=== PATIENT | female | born 1940 | race Caucasian/White ===

== ENCOUNTER → 2016-12-23 | Outpatient (CLI) | payer MEDICARE, OTHER ==
[~2016-12-23] VITALS: Ht 1 cm; Wt 0.5 kg
[~2016-12-23] MED LIST: BUPIVACAINE 0.75% INJ 10ML MPV SDV IJ ONE; BUPIVACAINE HCL 0.25% P/F 10 ML VIAL ONE; TRIAMCINOLONE 40MG/ML 1ML VIAL IX ONE; TRIAMCINOLONE 40MG/ML 1ML VIAL ONE; predniSONE 20 MG TAB ONE; predniSONE 20 MG TAB PO ONE
[2016-12-23 13:00] VITALS: BP 148/63
[2016-12-23 14:45] VITALS: BP 156/62
[2016-12-23 17:10] LABS: Basophils # (auto) 0 uL; Basophils % (auto) 0.3 % (0.0-2.0); Eosinophils # (auto) 0 uL; Eosinophils % (auto) 0.1 % (0.0-7.0); Hematocrit 38.5 % (36.0-46.0); Hemoglobin 12.9 g/dL (12.2-16.2); Lymphocytes # (auto) 1.2 uL; Lymphocytes % (auto) 12.1 % (10.0-50.0); Mean Corpuscular Hemoglobin 29.2 pg (28.0-32.0); Mean Corpuscular Hgb Conc. 33.4 g/dL (32.0-36.0); Mean Corpuscular Volume 87.5 fL (80.0-100.0); Monocytes # (auto) 0.7 uL; Monocytes % (auto) 7.9 % (0.0-12.0); Neutrophils # (auto) 7.6 uL; Neutrophils % (auto) 79.6 % (37.0-80.0); Platelet Count (auto) 307 10^3/uL (140-450); Red Cell Distribution Width 13.6 % (11.8-14.3); White Blood Cell 9.5 10^3/uL (4.4-10.8)
[2016-12-23 17:36] LABS: BUN/Creatinine Ratio 16.1; Magnesium 2.3 mg/dL (1.6-2.6); Potassium 3.7 mmol/L (3.5-5.1)
== END | disposition home or self-care (01) ==
LOC: CHF HDHVI 13:05
PROVIDERS: ATTEND Internal Medicine Cardiovascular Disease
DX: I10 Essential (primary) hypertension (principal); D64.9 Anemia, unspecified; R70.0 Elevated erythrocyte sedimentation rate; E55.9 Vitamin D deficiency, unspecified; S90.31XA Contusion of right foot, initial encounter; X58.XXXA Exposure to other specified factors, initial encounter; Y93.9 Activity, unspecified; Y92.89 Other specified places as the place of occurrence of the external cause; Y99.8 Other external cause status
CPT/HCPCS: 36415; 80048; 82306; 83735; 85025; 85652; G0463; J3301; J3490; J7512

== ENCOUNTER → 2017-03-18 | Outpatient (CLI) | payer MEDICARE, OTHER ==
[2017-03-18 11:40] VITALS: BP 156/68
[2017-03-18 12:20] VITALS: BP 159/66
[2017-03-20 06:06] LABS: Rheumatoid Arthritis Factor <10.0 IU/mL (0.0-13.9)
== END | disposition home or self-care (01) ==
LOC: CHF HDHVI 11:36
PROVIDERS: ATTEND Internal Medicine Cardiovascular Disease
DX: I10 Essential (primary) hypertension (principal); M06.9 Rheumatoid arthritis, unspecified; E78.00 Pure hypercholesterolemia, unspecified; D64.9 Anemia, unspecified; M45.0 Ankylosing spondylitis of multiple sites in spine
CPT/HCPCS: 36415; 85652; 86141; 86200; 86431; 86812; G0463

== ENCOUNTER → 2017-06-09 | Outpatient (CLI) | payer MEDICARE, OTHER | END | disposition home or self-care (01) | LOC: Rad HDHVI 12:41 | PROVIDERS: ATTEND Internal Medicine Cardiovascular Disease | DX: I10 Essential (primary) hypertension (principal) | CPT/HCPCS: 93880 ==

== ENCOUNTER → 2017-06-24 | Outpatient (CLI) | payer MEDICARE ==
[~2017-06-24] MED LIST changes: +ADENOSINE 61 MG in GIVE UN-DILUTED 0 ML IV ONE; +ADENOSINE 90 MG/30 ML INJ IV ONE; -BUPIVACAINE 0.75% INJ 10ML MPV SDV IJ ONE; -BUPIVACAINE HCL 0.25% P/F 10 ML VIAL ONE; -TRIAMCINOLONE 40MG/ML 1ML VIAL IX ONE; -TRIAMCINOLONE 40MG/ML 1ML VIAL ONE; -predniSONE 20 MG TAB ONE; -predniSONE 20 MG TAB PO ONE
[2017-06-24 11:55] LABS: Basophils # (auto) 0.1 uL; Eosinophils # (auto) 0.1 uL; Monocytes # (auto) 0.8 uL; Nucleated Red Blood Cells % 0.1 %
[2017-06-24 11:56] LABS: Urine Blood Negative /uL (Negative); Urine Specific Gravity 1.023 (1.001-1.035)
[2017-06-24 11:57] LABS: Basophils % (auto) 0.5 % (0.0-2.0); Eosinophils % (auto) 1.4 % (0.0-7.0); Hematocrit 36.7 % (36.0-46.0); Hemoglobin 12.3 g/dL (12.2-16.2); Lymphocytes # (auto) 3.7 uL; Lymphocytes % (auto) 35.4 % (10.0-50.0); Mean Corpuscular Hemoglobin 29.7 pg (28.0-32.0); Mean Corpuscular Hgb Conc. 33.5 g/dL (32.0-36.0); Mean Corpuscular Volume 88.8 fL (80.0-100.0); Monocytes % (auto) 7.4 % (0.0-12.0); Neutrophils # (auto) 5.8 uL; Neutrophils % (auto) 55.3 % (37.0-80.0); Platelet Count (auto) 592 10^3/uL (140-450); Red Blood Cells 4.14 10^6/uL (4.0-5.20); Red Cell Distribution Width 14.5 % (11.8-14.3); White Blood Cell 10.6 10^3/uL (4.4-10.8)
[2017-06-24 12:16] LABS: Free T4 (Free Thyroxine) 1.16 ng/dL (0.89-1.76)
[2017-06-24 12:17] LABS: Hepatitis B Surface Antibody Negative
[2017-06-24 12:18] LABS: Albumin 3.5 g/dL (3.4-5.0); BUN/Creatinine Ratio 36.6; Bilirubin, Total 0.3 mg/dL (0.2-1.0); Calcium 9.1 mg/dL (8.5-10.1); Potassium 3.6 mmol/L (3.5-5.1); Total Protein 7.6 g/dL (6.4-8.2)
[2017-06-24 12:28] LABS: Hepatitis B Surface Antigen Negative (Negative)
[2017-06-24 12:56] LABS: Hepatitis C Antibody Negative (Negative)
== END | disposition home or self-care (01) ==
LOC: Rad HDHVI 07:58
PROVIDERS: ATTEND Internal Medicine Cardiovascular Disease
DX: Z11.9 Encounter for screening for infectious and parasitic diseases, unspecified (principal); I34.0 Nonrheumatic mitral (valve) insufficiency; I10 Essential (primary) hypertension; M10.9 Gout, unspecified; E78.00 Pure hypercholesterolemia, unspecified; D64.9 Anemia, unspecified; E11.9 Type 2 diabetes mellitus without complications; E03.9 Hypothyroidism, unspecified; E55.9 Vitamin D deficiency, unspecified; D51.9 Vitamin B12 deficiency anemia, unspecified; N39.0 Urinary tract infection, site not specified; Z20.5 Contact with and (suspected) exposure to viral hepatitis
CPT/HCPCS: 36415; 78452; 80053; 80061; 81003; 82306; 82607; 83036; 84439; 84443; 84550; 85025; 86706; 86803; 87340; 93005; 93306; 96374; 96375; A9500; J0153

== ENCOUNTER → 2018-02-02 | Outpatient (CLI) | payer MEDICARE, BC ==
[2018-02-02 12:18] LABS: Basophils # (auto) 0.1 uL; Basophils % (auto) 0.8 % (0.0-2.0); Eosinophils # (auto) 0.1 uL; Eosinophils % (auto) 0.7 % (0.0-7.0); Hematocrit 43.3 % (36.0-46.0); Hemoglobin 14.4 g/dL (12.2-16.2); Lymphocytes # (auto) 1.7 uL; Lymphocytes % (auto) 21.2 % (10.0-50.0); Mean Corpuscular Hemoglobin 30.7 pg (28.0-32.0); Mean Corpuscular Hgb Conc. 33.3 g/dL (32.0-36.0); Mean Corpuscular Volume 92.4 fL (80.0-100.0); Monocytes # (auto) 0.4 uL; Monocytes % (auto) 4.9 % (0.0-12.0); Neutrophils # (auto) 5.9 uL; Neutrophils % (auto) 72.4 % (37.0-80.0); Nucleated Red Blood Cells % 0.3 %; Platelet Count (auto) 351 10^3/uL (140-450); Red Blood Cells 4.69 10^6/uL (4.0-5.20); Red Cell Distribution Width 14.4 % (11.8-14.3); White Blood Cell 8.1 10^3/uL (4.4-10.8)
[2018-02-02 12:31] LABS: BUN/Creatinine Ratio 19.7; Calcium 9.5 mg/dL (8.5-10.1)
== END | disposition home or self-care (01) ==
LOC: Rad HDHVI 10:03
PROVIDERS: ATTEND Internal Medicine Cardiovascular Disease
DX: M19.042 Primary osteoarthritis, left hand (principal); M19.041 Primary osteoarthritis, right hand; D64.9 Anemia, unspecified; I10 Essential (primary) hypertension
CPT/HCPCS: 36415; 73130; 80048; 85025

== ENCOUNTER → 2018-07-12 | Outpatient (CLI) | payer MEDICARE, BC | END | disposition home or self-care (01) | LOC: CHF HDHVI 12:28 | PROVIDERS: ATTEND Internal Medicine Cardiovascular Disease | DX: I34.0 Nonrheumatic mitral (valve) insufficiency (principal); I11.9 Hypertensive heart disease without heart failure; R07.89 Other chest pain | CPT/HCPCS: 93306; 93880 ==

== ENCOUNTER → 2018-09-29 | Outpatient (CLI) | payer MEDICARE, BC ==
[~2018-09-29] VITALS: Ht 160 cm; Wt 78.5 kg
[~2018-09-29] MED LIST changes: -ADENOSINE 61 MG in GIVE UN-DILUTED 0 ML IV ONE; +ADENOSINE 66 MG in GIVE UN-DILUTED 0 ML IV ONE
== END | disposition home or self-care (01) ==
LOC: Rad HDHVI 10:38
PROVIDERS: ATTEND Internal Medicine Cardiovascular Disease
DX: R10.9 Unspecified abdominal pain (principal); R11.10 Vomiting, unspecified; R19.7 Diarrhea, unspecified; R06.02 Shortness of breath; I10 Essential (primary) hypertension; M77.8 Other enthesopathies, not elsewhere classified
CPT/HCPCS: 78452; 93005; 96374; 96375; A9500; J0153

== ENCOUNTER → 2019-06-07 | Outpatient (CLI) | payer MEDICARE, BC ==
[~2019-06-07] MED LIST changes: -ADENOSINE 66 MG in GIVE UN-DILUTED 0 ML IV ONE; -ADENOSINE 90 MG/30 ML INJ IV ONE; +CYANOCOBALAMIN (B-12) 1000 MCG/1 ML VIAL ONE; +CYANOCOBALAMIN (B-12) 1000 MCG/1 ML VIAL SUBCUT ONE; +SODIUM CHLORIDE 0.9% 250 ML IV ONE
[2019-06-07 14:35] VITALS: BP 146/64
[2019-06-07 15:45] VITALS: BP 159/78
[2019-06-07 16:01] LABS: Basophils # (auto) 0 uL; Basophils % (auto) 0.7 % (0.0-2.0); Eosinophils # (auto) 0.1 uL; Eosinophils % (auto) 1.1 % (0.0-7.0); Hematocrit 41.8 % (36.0-46.0); Hemoglobin 13.8 g/dL (12.2-16.2); Lymphocytes # (auto) 1.9 uL; Lymphocytes % (auto) 27.1 % (10.0-50.0); Mean Corpuscular Hemoglobin 29.9 pg (28.0-32.0); Mean Corpuscular Volume 90.7 fL (80.0-100.0); Monocytes # (auto) 0.5 uL; Monocytes % (auto) 7.6 % (0.0-12.0); Neutrophils # (auto) 4.5 uL; Neutrophils % (auto) 63.5 % (37.0-80.0); Platelet Count (auto) 305 10^3/uL (140-450); Red Blood Cells 4.61 10^6/uL (4.0-5.20); Red Cell Distribution Width 14.6 % (11.8-14.3); White Blood Cell 7.2 10^3/uL (4.4-10.8)
[2019-06-07 16:15] LABS: Albumin 3.9 g/dL (3.4-5.0); BUN/Creatinine Ratio 27.7; Calcium 8.9 mg/dL (8.5-10.1)
[2019-06-07 16:18] LABS: Urine Blood Negative /uL (Negative); Urine Specific Gravity 1.024 (1.001-1.035)
[2019-06-07 16:23] LABS: Bilirubin, Total 0.5 mg/dL (0.2-1.0); Total Protein 7.4 g/dL (6.4-8.2)
== END | disposition home or self-care (01) ==
LOC: CHF HDHVI 14:42
PROVIDERS: ATTEND Internal Medicine Cardiovascular Disease
DX: E86.0 Dehydration (principal); R53.83 Other fatigue; I25.10 Atherosclerotic heart disease of native coronary artery without angina pectoris; E03.9 Hypothyroidism, unspecified; K90.9 Intestinal malabsorption, unspecified; N39.0 Urinary tract infection, site not specified; D51.9 Vitamin B12 deficiency anemia, unspecified; Z79.899 Other long term (current) drug therapy
CPT/HCPCS: 36415; 80053; 81003; 82306; 82607; 83036; 83735; 84443; 85025; 87086; 96360; 96372; G0463; J3420; J7050

== ENCOUNTER → 2019-06-09 | Outpatient (CLI) | payer MEDICARE, BC ==
[~2019-06-09] MED LIST changes: -CYANOCOBALAMIN (B-12) 1000 MCG/1 ML VIAL ONE; -CYANOCOBALAMIN (B-12) 1000 MCG/1 ML VIAL SUBCUT ONE; +KETOROLAC TROMETH 15 mg/ml 1ML VL IV ONE; +KETOROLAC TROMETH 60MG/2ML VIAL IM ONE; +KETOROLAC TROMETH 60MG/2ML VIAL ONE; +SODIUM CHLORIDE 0.9% 1,000 ML IV ONE; -SODIUM CHLORIDE 0.9% 250 ML IV ONE; +SODIUM CHLORIDE 0.9% 500 ML IV ONE
[2019-06-09 09:05] VITALS: BP 149/59
--- NOTE | 2019-06-09 09:05 | NUR ---
[facility] PT ARRIVED AT [facility] FOR TX AND EVAL PER MD STOKES BIWEEKLY . PT A/O X 4 0 DISTRESS. PT VERBALIZED GENERALIZED PAIN DUE TO HISTORY OF ARTHRITIS
--- NOTE | 2019-06-09 09:30 | NUR ---
IV insertion IV access obtained, via clean sterile technique by inserting 22 gauge catheter at after attempt(s). IV secured properly. No trauma to site. Patient tolerated procedure well.
--- NOTE | 2019-06-09 09:56 | NUR ---
TORADOL GIVEN IV PER MD ORDER
[2019-06-09 12:04] VITALS: BP 156/71
--- NOTE | 2019-06-09 12:04 | NUR ---
IV removal IV DC'd with sterile technique, catheter fully intact. Pressure dressing applied to site. Patient tolerated procedure well. Discharged with aftercare instructions per MD. NOTE:
--- NOTE | 2019-06-09 12:04 | NUR ---
Discharge Instructions See e-MAR for any mediations given with this visit. Patient education given on disease process. Patient verbalized understanding. Previous labs reviewed. Patient discharged in stable condition with after care instructions and follow up appointmenMEDICATIONS NS 500 ML IV [id number] Addendum: 06/09/19 at 1640 by RAJINDER RICARDO. MELVA SPRINGER TORADOL IM GIVEN BY NILDA BARRON TORADOL IV GIVEN BY RAJINDER FRYE Addendum: 06/09/19 at 1740 by RAJINDER RICARDO. MELVA SPRINGER PT TO FOLLOW UP IN CLINIC ON WEDNESDAY. PT IS STRATING ELAVIL AND STOPPING [id number] ALSO STARTING TRAZADONE 1 1/2 TABLETS PER MD STOKES, PT VERBALIZED UNDERSTANDING WILL CONTINUE TO MONITOR PTS EMOTIONAL PROGRESS AND BLOOD PRESSURE
--- NOTE | 2019-06-09 12:04 | NUR ---
TORADOL GIVEN IM PER MD ORDER
== END | disposition home or self-care (01) ==
LOC: CHF HDHVI 09:01
PROVIDERS: ATTEND Internal Medicine Cardiovascular Disease
DX: E86.0 Dehydration (principal); I25.10 Atherosclerotic heart disease of native coronary artery without angina pectoris; E03.9 Hypothyroidism, unspecified; M06.9 Rheumatoid arthritis, unspecified; I10 Essential (primary) hypertension; Z79.899 Other long term (current) drug therapy
CPT/HCPCS: 96361; 96372; 96374; G0463; J1885; 96360; 96375

== ENCOUNTER → 2019-06-12 | Outpatient (CLI) | payer MEDICARE, BC ==
[~2019-06-12] VITALS: Ht 2.5 cm; Wt 0.5 kg
[~2019-06-12] MED LIST changes: -KETOROLAC TROMETH 15 mg/ml 1ML VL IV ONE; +MVI IN SODIUM CHLORIDE 0.9% IVB ONE; +MVI in SODIUM CHLORIDE 0.9% 1,010 ML ONE; -SODIUM CHLORIDE 0.9% 1,000 ML IV ONE; -SODIUM CHLORIDE 0.9% 500 ML IV ONE
[2019-06-12 09:10] VITALS: BP 157/64
[2019-06-12 12:18] VITALS: BP 163/76
== END | disposition home or self-care (01) ==
LOC: CHF HDHVI 09:28
PROVIDERS: ATTEND Internal Medicine Cardiovascular Disease
DX: E86.0 Dehydration (principal); R53.83 Other fatigue; M06.9 Rheumatoid arthritis, unspecified; I25.10 Atherosclerotic heart disease of native coronary artery without angina pectoris; E03.9 Hypothyroidism, unspecified; Z79.899 Other long term (current) drug therapy
CPT/HCPCS: 96365; 96366; 96372; G0463; J1885; J3411; J3475

== ENCOUNTER → 2019-06-16 | Outpatient (CLI) | payer MEDICARE, BC ==
[~2019-06-16] MED LIST changes: -KETOROLAC TROMETH 60MG/2ML VIAL IM ONE; -KETOROLAC TROMETH 60MG/2ML VIAL ONE; -MVI IN SODIUM CHLORIDE 0.9% IVB ONE; +MVI in SODIUM CHLORIDE 0.9% 1,000 ML IVB ONE
[2019-06-16 09:43] VITALS: BP 132/60
--- NOTE | 2019-06-16 09:43 | NUR ---
CHF PT ARRIVED TO CLINIC FOR WEEKLY F/U AND ASSESSMENT OF HYDRATION STATUS. PT A/O X 4 0 DISTRESS
--- NOTE | 2019-06-16 09:55 | NUR ---
IV insertion IV access obtained, via clean sterile technique by inserting 22 gauge catheter at LAC after 1 attempt(s). IV secured properly. No trauma to site. Patient tolerated procedure well.
--- NOTE | 2019-06-16 12:20 | NUR ---
IV removal IV DC'd with sterile technique, catheter fully intact. Pressure dressing applied to site. Patient tolerated procedure well. Discharged with aftercare instructions per MD. NOTE:
--- NOTE | 2019-06-16 12:24 | NUR ---
Discharge Instructions See e-MAR for any mediations given with this visit. Patient education given on disease process. Patient verbalized understanding. Patient discharged in stable condition with after care instructions and follow up appointment. F/U IN CLINIC ON WEDNESDAY AND MD STOKES ON WEDNESDAY NEXT WEEK MEDICATIONS MVI [id number]
[2019-06-16 16:01] VITALS: BP 151/69
== END | disposition home or self-care (01) ==
LOC: CHF HDHVI 09:39
PROVIDERS: ATTEND Internal Medicine Cardiovascular Disease
DX: E86.0 Dehydration (principal); M06.9 Rheumatoid arthritis, unspecified; E03.9 Hypothyroidism, unspecified; R03.0 Elevated blood-pressure reading, without diagnosis of hypertension; Z79.899 Other long term (current) drug therapy
CPT/HCPCS: 96365; 96366; G0463; J3411; J3475

== ENCOUNTER → 2019-06-19 | Outpatient (CLI) | payer BC, MEDICARE ==
[~2019-06-19] MED LIST changes: -MVI in SODIUM CHLORIDE 0.9% 1,000 ML IVB ONE; +MVI in SODIUM CHLORIDE 0.9% 500 ML IVB ONE
[2019-06-19 10:23] VITALS: BP 145/67
--- NOTE | 2019-06-19 10:23 | NUR ---
CHF PT ARRIVED TO THE [facility]F CLINIC FOR MD ORDERS IV MVI BAG. A/O X4 VSS
--- NOTE | 2019-06-19 10:48 | NUR ---
IV insertion IV access obtained, via clean sterile technique by inserting 22 gauge catheter at 1 after RFA attempt(s). IV secured properly. No trauma to site. Patient tolerated procedure well. NOTE INSERTED BY NANCY FRYE
--- NOTE | 2019-06-19 10:52 | NUR ---
MVI BAG STARTED , VSS
[2019-06-19 11:15] VITALS: BP 142/67
--- NOTE | 2019-06-19 11:59 | NUR ---
PT TOLERATING MVI INFUSION, IV SITE BENIGN, VSS
[2019-06-19 12:04] LABS: Basophils # (auto) 0 10 ^3/uL (0-0.2); Basophils % (auto) 0.8 % (0.0-2.0); Eosinophils # (auto) 0 10 ^3/uL (0-0.8); Eosinophils % (auto) 0.8 % (0.0-7.0); Hematocrit 39.2 % (36.0-46.0); Hemoglobin 13.6 g/dL (12.2-16.2); Lymphocytes # (auto) 0.9 10 ^3/uL (0.4-5.4); Lymphocytes % (auto) 15.5 % (10.0-50.0); Mean Corpuscular Hemoglobin 31.2 pg (28.0-32.0); Mean Corpuscular Hgb Conc. 34.7 g/dL (32.0-36.0); Mean Corpuscular Volume 90.1 fL (80.0-100.0); Monocytes # (auto) 0.3 10 ^3/uL (0-1.3); Monocytes % (auto) 4.3 % (0.0-12.0); Neutrophils # (auto) 4.6 10 ^3/uL (1.6-8.6); Neutrophils % (auto) 78.6 % (37.0-80.0); Nucleated Red Blood Cells % 0.1 %; Platelet Count (auto) 280 10^3/uL (140-450); Red Blood Cells 4.34 10^6/uL (4.0-5.20); Red Cell Distribution Width 14.3 % (11.8-14.3); White Blood Cell 5.9 10^3/uL (4.4-10.8)
[2019-06-19 12:15] VITALS: BP 163/67
[2019-06-19 12:16] LABS: Potassium 3.9 mmol/L (3.5-5.1)
[2019-06-19 12:20] LABS: BUN/Creatinine Ratio 21.7; Calcium 9.3 mg/dL (8.5-10.1); Magnesium 2.3 mg/dL (1.6-2.6)
--- NOTE | 2019-06-19 13:17 | NUR ---
IV removal IV DC'd with sterile technique, catheter fully intact. Pressure dressing applied to site. Patient tolerated procedure well. Discharged with aftercare instructions per MD. NOTE: REMOVED BY NANCY FRYE
[2019-06-19 13:24] VITALS: BP 154/70
--- NOTE | 2019-06-19 13:24 | NUR ---
Discharge Instructions See e-MAR for any mediations given with this visit. Patient education given on disease process. Patient verbalized understanding. Previous labs reviewed. Patient discharged in stable condition with after care instructions and follow up appointment. ON WEDNESDAY NOTE MVI BAG [id number]
== END | disposition home or self-care (01) ==
LOC: CHF HDHVI 10:15
PROVIDERS: ATTEND Internal Medicine Cardiovascular Disease
DX: E86.0 Dehydration (principal); R53.83 Other fatigue; I25.10 Atherosclerotic heart disease of native coronary artery without angina pectoris; D64.9 Anemia, unspecified; E03.9 Hypothyroidism, unspecified; Z79.899 Other long term (current) drug therapy
CPT/HCPCS: 36415; 80048; 83735; 85025; 96365; 96366; G0463; J3411; J3475

== ENCOUNTER → 2019-06-23 | Outpatient (CLI) | payer MEDICARE ==
[2019-06-23 09:30] VITALS: BP 126/68
[2019-06-23 12:15] VITALS: BP 100/64
[2019-06-23 13:08] VITALS: BP 126/68
== END | disposition home or self-care (01) ==
LOC: CHF HDHVI 09:14
PROVIDERS: ATTEND Internal Medicine Cardiovascular Disease
DX: E86.0 Dehydration (principal); E03.9 Hypothyroidism, unspecified; I25.10 Atherosclerotic heart disease of native coronary artery without angina pectoris; R03.0 Elevated blood-pressure reading, without diagnosis of hypertension; M06.9 Rheumatoid arthritis, unspecified; Z79.899 Other long term (current) drug therapy
CPT/HCPCS: 96365; 96366; G0463; J3411; J3475

== ENCOUNTER → 2019-06-26 | Outpatient (CLI) | payer MEDICARE ==
[~2019-06-26] VITALS: Ht 30.5 cm; Wt 0.5 kg
[~2019-06-26] MED LIST changes: +KETOROLAC TROMETH 60MG/2ML VIAL IM ONE; +KETOROLAC TROMETH 60MG/2ML VIAL ONE; -MVI in SODIUM CHLORIDE 0.9% 1,010 ML ONE; -MVI in SODIUM CHLORIDE 0.9% 500 ML IVB ONE
[2019-06-26 09:01] VITALS: BP 159/84
[2019-06-26 09:51] VITALS: BP 146/76
== END | disposition home or self-care (01) ==
LOC: CHF HDHVI 09:10
PROVIDERS: ATTEND Internal Medicine Cardiovascular Disease
DX: R52 Pain, unspecified (principal); I25.10 Atherosclerotic heart disease of native coronary artery without angina pectoris; E03.9 Hypothyroidism, unspecified; M06.9 Rheumatoid arthritis, unspecified; Z79.899 Other long term (current) drug therapy
CPT/HCPCS: 96372; G0463; J1885

== ENCOUNTER → 2019-07-05 | Outpatient (CLI) | payer MEDICARE ==
[~2019-07-05] VITALS: Ht 30.5 cm; Wt 0.5 kg
[~2019-07-05] MED LIST changes: +MULTIPLE VIT 10 ML IV ONE; +MVI in SODIUM CHLORIDE 0.9% 500 ML IVB ONE
[2019-07-05 09:08] VITALS: BP 135/68
--- NOTE | 2019-07-05 09:08 | NUR ---
CHF PT ARRIVED TO CLINIC FOR WEEKLY F/U WITH ORDERS FOR MVI INFUSION. A/O X4 VSS
--- NOTE | 2019-07-05 09:19 | NUR ---
IV insertion IV access obtained, via clean sterile technique by inserting 22 gauge catheter at RFA after 1 attempt(s). IV secured properly. No trauma to site. Patient tolerated procedure well. NOTE INSERTED BY NANCY FRYE
--- NOTE | 2019-07-05 09:39 | NUR ---
MVI STARTED AT 150ML/HR. WILL CONTINUE TO MONITOR
[2019-07-05 10:00] VITALS: BP 146/70
[2019-07-05 11:00] VITALS: BP 152/73
[2019-07-05 11:30] VITALS: BP 138/63
[2019-07-05 11:51] LABS: Basophils # (auto) 0 10 ^3/uL (0-0.2); Basophils % (auto) 0.9 % (0.0-2.0); Eosinophils # (auto) 0.2 10 ^3/uL (0-0.8); Eosinophils % (auto) 4.2 % (0.0-7.0); Hematocrit 39.8 % (36.0-46.0); Hemoglobin 13.4 g/dL (12.2-16.2); Lymphocytes # (auto) 1.9 10 ^3/uL (0.4-5.4); Lymphocytes % (auto) 33.5 % (10.0-50.0); Mean Corpuscular Hemoglobin 30.7 pg (28.0-32.0); Mean Corpuscular Hgb Conc. 33.8 g/dL (32.0-36.0); Mean Corpuscular Volume 90.8 fL (80.0-100.0); Monocytes # (auto) 0.5 10 ^3/uL (0-1.3); Monocytes % (auto) 8.1 % (0.0-12.0); Neutrophils # (auto) 3.1 10 ^3/uL (1.6-8.6); Neutrophils % (auto) 53.3 % (37.0-80.0); Nucleated Red Blood Cells % 0.2 %; Platelet Count (auto) 346 10^3/uL (140-450); Red Blood Cells 4.38 10^6/uL (4.0-5.20); White Blood Cell 5.7 10^3/uL (4.4-10.8)
--- NOTE | 2019-07-05 11:54 | NUR ---
PT TOLERATING INFUSION. IV SITE BENIGN. VSS. WILL CONTINUE TO MONITOR
[2019-07-05 12:00] VITALS: BP 155/62
[2019-07-05 12:10] LABS: Calcium 9.1 mg/dL (8.5-10.1); Magnesium 2.4 mg/dL (1.6-2.6); Potassium 3.8 mmol/L (3.5-5.1)
[2019-07-05 12:12] LABS: BUN/Creatinine Ratio 23.4
[2019-07-05 12:42] VITALS: BP 158/75
--- NOTE | 2019-07-05 12:42 | NUR ---
Discharge Instructions See e-MAR for any mediations given with this visit. Patient education given on disease process. Patient verbalized understanding. Previous labs reviewed. Patient discharged in stable condition with after care instructions and follow up appointment. WILL CALL NEXT WEEK FOR F/U APPOINTMENT NOTE MVI IV [id number] TORADOL YANET BARRYE GIVEN BY NANCY FRYE
== END | disposition home or self-care (01) ==
LOC: CHF HDHVI 09:06
PROVIDERS: ATTEND Internal Medicine Cardiovascular Disease
DX: E86.0 Dehydration (principal); D64.9 Anemia, unspecified; R53.83 Other fatigue; I25.10 Atherosclerotic heart disease of native coronary artery without angina pectoris; E03.9 Hypothyroidism, unspecified; I10 Essential (primary) hypertension; M06.9 Rheumatoid arthritis, unspecified; Z79.899 Other long term (current) drug therapy
CPT/HCPCS: 36415; 80048; 83735; 85025; 96365; 96366; 96372; G0463; J1885; J7040

== ENCOUNTER → 2019-07-25 | Outpatient (CLI) | payer MEDICARE, BC ==
[~2019-07-25] VITALS: Ht 157.5 cm; Wt 71.2 kg
[~2019-07-25] MED LIST changes: -KETOROLAC TROMETH 60MG/2ML VIAL ONE
[2019-07-25 08:45] VITALS: BP 142/68
--- NOTE | 2019-07-25 08:45 | NUR ---
CHF PT ARRIVED TO THE CHF CLINIC FOR IV HYDRATION MVI PER MD ORDERS. A/OX4.
--- NOTE | 2019-07-25 08:59 | NUR ---
IV insertion IV access obtained, via clean sterile technique by inserting 22 gauge catheter at LAC after 1 attempt(s). IV secured properly. No trauma to site. Patient tolerated procedure well. NOTE INSERTED BY NANCY FRYE
--- NOTE | 2019-07-25 09:09 | NUR ---
MVI INFUSION STARTED PER MD ORDERS STARTED @ 150ML/HR VSS. WILL CONTINUE TO MONITOR.
[2019-07-25 11:57] LABS: Basophils # (auto) 0.1 10 ^3/uL (0-0.2); Eosinophils # (auto) 0.4 10 ^3/uL (0-0.8); Eosinophils % (auto) 4.5 % (0.0-7.0); Hemoglobin 13.2 g/dL (12.2-16.2); Lymphocytes # (auto) 3.1 10 ^3/uL (0.4-5.4); Mean Corpuscular Hemoglobin 30.9 pg (28.0-32.0); Mean Corpuscular Volume 90.9 fL (80.0-100.0); Monocytes # (auto) 0.8 10 ^3/uL (0-1.3); Monocytes % (auto) 9.5 % (0.0-12.0); Neutrophils # (auto) 4.2 10 ^3/uL (1.6-8.6); Nucleated Red Blood Cells % 0.1 %; Platelet Count (auto) 293 10^3/uL (140-450); Red Blood Cells 4.29 10^6/uL (4.0-5.20); Red Cell Distribution Width 13.9 % (11.8-14.3); White Blood Cell 8.6 10^3/uL (4.4-10.8)
[2019-07-25 12:08] LABS: Potassium 3.9 mmol/L (3.5-5.1)
[2019-07-25] MEDS: KETOROLAC TROMETH 60MG/2ML VIAL ONE ×2 (12:12→13:21)
--- NOTE | 2019-07-25 12:13 | NUR ---
IV removal IV DC'd by this RN with sterile technique, catheter fully intact. Pressure dressing applied to site. Patient tolerated procedure well.
[2019-07-25 12:15] VITALS: BP 157/84
--- NOTE | 2019-07-25 12:15 | NUR ---
Discharge Instructions See e-MAR for any mediations given with this visit. Patient education given on disease process. Patient verbalized understanding. Previous labs reviewed. Patient discharged in stable condition with after care instructions and follow up appointment. NOTES [facility] [id number] ADMIN BY NANCY FRYE TORADOL IM RIGHT GLUT GIVEN BY MICHAEL FRYE
[2019-07-25 12:16] LABS: Albumin 3.7 g/dL (3.4-5.0); BUN/Creatinine Ratio 20.8; Bilirubin, Total 0.4 mg/dL (0.2-1.0); Calcium 8.8 mg/dL (8.5-10.1); Magnesium 2.4 mg/dL (1.6-2.6); Total Protein 7.1 g/dL (6.4-8.2)
== END | disposition home or self-care (01) ==
LOC: CHF HDHVI 08:47
PROVIDERS: ATTEND Internal Medicine Cardiovascular Disease
DX: D64.9 Anemia, unspecified (principal); R00.2 Palpitations; I25.10 Atherosclerotic heart disease of native coronary artery without angina pectoris; I10 Essential (primary) hypertension; E03.9 Hypothyroidism, unspecified; Z79.899 Other long term (current) drug therapy
CPT/HCPCS: 36415; 80053; 83735; 85025; 96365; 96372; G0463; J1885; J7040; 96366

== ENCOUNTER → 2019-08-08 | Outpatient (CLI) | payer MEDICARE, BC ==
[~2019-08-08] MED LIST changes: +KETOROLAC TROMETH 60MG/2ML VIAL ONE; +MVI in SODIUM CHLORIDE 0.9% 1,000 ML IVB ONE; -MVI in SODIUM CHLORIDE 0.9% 500 ML IVB ONE
[2019-08-08 09:05] VITALS: BP 143/64
--- NOTE | 2019-08-08 09:05 | NUR ---
CHF PT ARRIVED TO THE CHF CLINIC FOR TX AND EVAL A/O X 4 0 DISTRESS. PAIN NOTED TO BACK 07/20. STAT LABS SENT TO CHECK BUN/CREA PER . VSS
--- NOTE | 2019-08-08 09:15 | NUR ---
IV insertion IV access obtained, via clean sterile technique by inserting 22 gauge catheter at LAC after 1 attempt(s). IV secured properly. No trauma to site. Patient tolerated procedure well.
[2019-08-08 10:04] LABS: Magnesium 2.2 mg/dL (1.6-2.6); Potassium 4.1 mmol/L (3.5-5.1)
[2019-08-08 11:53] VITALS: BP 152/61
--- NOTE | 2019-08-08 11:53 | NUR ---
Discharge Instructions See e-MAR for any mediations given with this visit. Patient education given on disease process. Patient verbalized understanding. Previous labs reviewed. Patient discharged in stable condition with after care instructions and follow up appointment. MEDICATIONS MVI 500 ML IV [id number] VITAMIN B12 IM
--- NOTE | 2019-08-08 11:53 | NUR ---
IV removal IV DC'd with sterile technique, catheter fully intact. Pressure dressing applied to site. Patient tolerated procedure well. Discharged with aftercare instructions per MD. NOTE: REMOVED BY RN
== END | disposition home or self-care (01) ==
LOC: CHF HDHVI 09:02
PROVIDERS: ATTEND Internal Medicine Cardiovascular Disease
DX: E86.0 Dehydration (principal); I25.10 Atherosclerotic heart disease of native coronary artery without angina pectoris; E87.6 Hypokalemia; R94.4 Abnormal results of kidney function studies; G89.29 Other chronic pain; I10 Essential (primary) hypertension; E03.9 Hypothyroidism, unspecified; Z79.899 Other long term (current) drug therapy
CPT/HCPCS: 36415; 82565; 83735; 84132; 84520; 96365; 96366; 96372; J1885; J7040

== ENCOUNTER → 2019-08-18 | Outpatient (CLI) | payer MEDICARE, BC ==
[~2019-08-18] MED LIST changes: -MULTIPLE VIT 10 ML IV ONE; -MVI in SODIUM CHLORIDE 0.9% 1,000 ML IVB ONE
[2019-08-18 11:00] VITALS: BP 143/68
[2019-08-18 11:20] VITALS: BP 150/85
== END | disposition home or self-care (01) ==
LOC: CHF HDHVI 10:38
PROVIDERS: ATTEND Internal Medicine Cardiovascular Disease
DX: M06.9 Rheumatoid arthritis, unspecified (principal); I25.10 Atherosclerotic heart disease of native coronary artery without angina pectoris; I10 Essential (primary) hypertension; E03.9 Hypothyroidism, unspecified; G89.29 Other chronic pain; Z79.899 Other long term (current) drug therapy
CPT/HCPCS: 96372; G0463; J1885

== ENCOUNTER → 2019-11-15 | Outpatient (CLI) | payer MEDICARE, BC | END | disposition home or self-care (01) | LOC: Rad HDHVI 11:18 | PROVIDERS: ATTEND Internal Medicine Cardiovascular Disease | DX: M25.572 Pain in left ankle and joints of left foot (principal) | CPT/HCPCS: 73610 ==

== ENCOUNTER → 2019-11-17 | Outpatient (CLI) | payer MEDICARE, BC ==
[2019-11-17 12:31] LABS: Urine Blood Negative /uL (Negative); Urine Specific Gravity 1.023 (1.001-1.035)
[2019-11-17 12:36] LABS: Basophils # (auto) 0.1 10 ^3/uL (0-0.2); Basophils % (auto) 0.9 % (0.0-2.0); Eosinophils # (auto) 0.3 10 ^3/uL (0-0.8); Eosinophils % (auto) 5.8 % (0.0-7.0); Hemoglobin 14.1 g/dL (12.2-16.2); Lymphocytes % (auto) 35.9 % (10.0-50.0); Mean Corpuscular Hemoglobin 29.6 pg (28.0-32.0); Mean Corpuscular Hgb Conc. 33.4 g/dL (32.0-36.0); Mean Corpuscular Volume 88.6 fL (80.0-100.0); Monocytes # (auto) 0.5 10 ^3/uL (0-1.3); Monocytes % (auto) 8.8 % (0.0-12.0); Neutrophils # (auto) 2.7 10 ^3/uL (1.6-8.6); Neutrophils % (auto) 48.6 % (37.0-80.0); Nucleated Red Blood Cells % 0.2 %; Platelet Count (auto) 326 10^3/uL (140-450); Red Blood Cells 4.75 10^6/uL (4.0-5.20); Red Cell Distribution Width 13.5 % (11.8-14.3); White Blood Cell 5.5 10^3/uL (4.4-10.8)
[2019-11-17 12:42] LABS: Potassium 4.1 mmol/L (3.5-5.1)
[2019-11-17 12:51] LABS: Albumin 3.6 g/dL (3.4-5.0); Bilirubin, Total 0.5 mg/dL (0.2-1.0); Calcium 9.5 mg/dL (8.5-10.1); Total Protein 7.1 g/dL (6.4-8.2)
[2019-11-17 15:13] LABS: Free T4 (Free Thyroxine) 1.01 ng/dL (0.89-1.76)
== END | disposition home or self-care (01) ==
LOC: LAB 08:49
PROVIDERS: ATTEND Internal Medicine Cardiovascular Disease
DX: E03.9 Hypothyroidism, unspecified (principal); K90.9 Intestinal malabsorption, unspecified; N39.0 Urinary tract infection, site not specified; D51.9 Vitamin B12 deficiency anemia, unspecified; Z00.00 Encounter for general adult medical examination without abnormal findings; Z79.899 Other long term (current) drug therapy
CPT/HCPCS: 36415; 80053; 80061; 81003; 82306; 82607; 83036; 84439; 84443; 85025; 87086

== ENCOUNTER → 2019-11-22 | Outpatient (CLI) | payer MEDICARE, BC | END | disposition home or self-care (01) | LOC: Rad HDHVI 10:16 | PROVIDERS: ATTEND Internal Medicine Cardiovascular Disease | DX: I08.3 Combined rheumatic disorders of mitral, aortic and tricuspid valves (principal); I50.33 Acute on chronic diastolic (congestive) heart failure; R06.02 Shortness of breath | CPT/HCPCS: 93306 ==

== ENCOUNTER → 2019-11-30 | Outpatient (CLI) | payer MEDICARE, BC ==
[~2019-11-30] VITALS: Ht 158.8 cm; Wt 74.8 kg
[~2019-11-30] MED LIST changes: +ADENOSINE 63 MG in GIVE UN-DILUTED 0 ML IV ONE; +ADENOSINE 90 MG/30 ML INJ IV ONE; -KETOROLAC TROMETH 60MG/2ML VIAL IM ONE; -KETOROLAC TROMETH 60MG/2ML VIAL ONE
== END | disposition home or self-care (01) ==
LOC: Rad HDHVI 09:09
PROVIDERS: ATTEND Internal Medicine Cardiovascular Disease
DX: I10 Essential (primary) hypertension (principal); R06.02 Shortness of breath; J44.9 Chronic obstructive pulmonary disease, unspecified; E78.5 Hyperlipidemia, unspecified; Z82.49 Family history of ischemic heart disease and other diseases of the circulatory system
CPT/HCPCS: 78452; 93005; 96374; 96375; A9500; J0153

== ENCOUNTER → 2020-02-09 | Outpatient (CLI) | payer MEDICARE, BC | END | disposition home or self-care (01) | LOC: Rad HDHVI 10:41 | PROVIDERS: ATTEND Internal Medicine | DX: M17.11 Unilateral primary osteoarthritis, right knee (principal); M85.88 Other specified disorders of bone density and structure, other site; M11.261 Other chondrocalcinosis, right knee; M25.461 Effusion, right knee; M25.561 Pain in right knee | CPT/HCPCS: 73562 ==

== ENCOUNTER → 2020-04-17 | Outpatient (CLI) | payer MEDICARE, BC ==
[2020-04-17 11:50] LABS: Urine Blood Negative /uL (Negative); Urine Specific Gravity 1.024 (1.001-1.035)
== END | disposition home or self-care (01) ==
LOC: LAB 11:14
PROVIDERS: ATTEND Internal Medicine Cardiovascular Disease
DX: N39.0 Urinary tract infection, site not specified (principal)
CPT/HCPCS: 81003

== ENCOUNTER → 2020-05-20 | Outpatient (CLI) | payer MEDICARE, BC ==
[2020-05-20 14:03] LABS: Basophils # (auto) 0 10 ^3/uL (0-0.2); Basophils % (auto) 0.6 % (0.0-2.0); Eosinophils # (auto) 0.1 10 ^3/uL (0-0.8); Eosinophils % (auto) 1.5 % (0.0-7.0); Hematocrit 38.5 % (36.0-46.0); Hemoglobin 13.2 g/dL (12.2-16.2); Lymphocytes # (auto) 1.6 10 ^3/uL (0.4-5.4); Lymphocytes % (auto) 23.6 % (10.0-50.0); Mean Corpuscular Hemoglobin 30.9 pg (28.0-32.0); Mean Corpuscular Hgb Conc. 34.3 g/dL (32.0-36.0); Mean Corpuscular Volume 89.9 fL (80.0-100.0); Monocytes # (auto) 0.5 10 ^3/uL (0-1.3); Monocytes % (auto) 7.2 % (0.0-12.0); Neutrophils # (auto) 4.6 10 ^3/uL (1.6-8.6); Neutrophils % (auto) 67.1 % (37.0-80.0); Platelet Count (auto) 326 10^3/uL (140-450); Red Blood Cells 4.28 10^6/uL (4.0-5.20); White Blood Cell 6.9 10^3/uL (4.4-10.8)
[2020-05-20 15:03] LABS: Albumin 3.5 g/dL (3.4-5.0); BUN/Creatinine Ratio 23.8; Bilirubin, Total 0.5 mg/dL (0.2-1.0); Calcium 9.1 mg/dL (8.5-10.1); Total Protein 7.4 g/dL (6.4-8.2)
[2020-05-20 15:35] LABS: Free T4 (Free Thyroxine) 1.01 ng/dL (0.89-1.76)
== END | disposition home or self-care (01) ==
LOC: LAB 09:42
PROVIDERS: ATTEND Internal Medicine Cardiovascular Disease
DX: D51.3 Other dietary vitamin B12 deficiency anemia (principal); E11.9 Type 2 diabetes mellitus without complications; I10 Essential (primary) hypertension; E55.9 Vitamin D deficiency, unspecified; D64.9 Anemia, unspecified; R00.2 Palpitations; R53.1 Weakness; R30.0 Dysuria
CPT/HCPCS: 36415; 80053; 80061; 82306; 82607; 83036; 84439; 84443; 85025

== ENCOUNTER → 2020-05-21 | Outpatient (CLI) | payer MEDICARE, BC ==
[2020-05-21 11:37] LABS: Urine Blood Negative /uL (Negative); Urine Specific Gravity 1.016 (1.001-1.035)
== END | disposition home or self-care (01) ==
LOC: LAB 10:30
PROVIDERS: ATTEND Internal Medicine Cardiovascular Disease
DX: N39.0 Urinary tract infection, site not specified (principal)
CPT/HCPCS: 81003

== ENCOUNTER → 2021-10-29 | Outpatient (CLI) | payer MEDICARE, BC | END | disposition home or self-care (01) | LOC: Rad HDHVI 08:03 | PROVIDERS: ATTEND Internal Medicine Cardiovascular Disease | DX: I65.23 Occlusion and stenosis of bilateral carotid arteries (principal); I65.03 Occlusion and stenosis of bilateral vertebral arteries; I10 Essential (primary) hypertension; E78.5 Hyperlipidemia, unspecified | CPT/HCPCS: 93880 ==

== ENCOUNTER → 2021-11-03 | Outpatient (CLI) | payer MEDICARE, BC ==
[2021-11-03 11:37] LABS: Basophils # (auto) 0.1 10 ^3/uL (0-0.2); Basophils % (auto) 0.9 % (0.0-2.0); Eosinophils # (auto) 0.2 10 ^3/uL (0-0.8); Eosinophils % (auto) 3.6 % (0.0-7.0); Hematocrit 40.1 % (36.0-46.0); Hemoglobin 13.2 g/dL (12.2-16.2); Lymphocytes # (auto) 1.9 10 ^3/uL (0.4-5.4); Lymphocytes % (auto) 28.9 % (10.0-50.0); Mean Corpuscular Hemoglobin 28.6 pg (28.0-32.0); Mean Corpuscular Hgb Conc. 32.9 g/dL (32.0-36.0); Mean Corpuscular Volume 87.2 fL (80.0-100.0); Monocytes # (auto) 0.5 10 ^3/uL (0-1.3); Neutrophils % (auto) 59.6 % (37.0-80.0); Red Cell Distribution Width 13.8 % (11.8-14.3); White Blood Cell 6.7 10^3/uL (4.4-10.8)
[2021-11-03 11:56] LABS: Albumin 3.4 g/dL (3.4-5.0); Potassium 3.8 mmol/L (3.5-5.1)
[2021-11-03 12:08] LABS: BUN/Creatinine Ratio 23.4; Bilirubin, Total 0.4 mg/dL (0.2-1.0); Calcium 9.3 mg/dL (8.5-10.1)
[2021-11-03 12:13] LABS: Free T4 (Free Thyroxine) 0.87 ng/dL (0.89-1.76)
[2021-11-04 11:20] LABS: Urine Blood Negative /uL (Negative); Urine Specific Gravity 1.016 (1.001-1.035)
== END | disposition home or self-care (01) ==
LOC: LAB 08:23
PROVIDERS: ATTEND Internal Medicine Cardiovascular Disease
DX: D51.3 Other dietary vitamin B12 deficiency anemia (principal); D64.9 Anemia, unspecified; E11.9 Type 2 diabetes mellitus without complications; E55.9 Vitamin D deficiency, unspecified; I10 Essential (primary) hypertension; R00.2 Palpitations; R53.1 Weakness; R30.0 Dysuria
CPT/HCPCS: 36415; 80053; 80061; 81003; 82306; 82607; 83036; 84439; 84443; 85025

== ENCOUNTER → 2021-12-03 | Outpatient (CLI) | payer MEDICARE, BC | END | disposition home or self-care (01) | LOC: Rad HDHVI 10:42 | PROVIDERS: ATTEND Internal Medicine Cardiovascular Disease | DX: M47.812 Spondylosis without myelopathy or radiculopathy, cervical region (principal); M50.31 Other cervical disc degeneration, high cervical region | CPT/HCPCS: 72040 ==

== ENCOUNTER → 2021-12-22 | Outpatient (CLI) | payer MEDICARE, BC | END | disposition home or self-care (01) | LOC: Rad HDHVI 13:21 | PROVIDERS: ATTEND Internal Medicine Cardiovascular Disease | DX: I08.1 Rheumatic disorders of both mitral and tricuspid valves (principal); R07.89 Other chest pain; R06.02 Shortness of breath | CPT/HCPCS: 93306 ==

== ENCOUNTER → 2021-12-30 | Outpatient (CLI) | payer MEDICARE, BC ==
[~2021-12-30] VITALS: Ht 162.6 cm; Wt 73.0 kg
[~2021-12-30] MED LIST changes: +ADENOSINE 61 MG in GIVE UN-DILUTED 0 ML IV ONE; -ADENOSINE 63 MG in GIVE UN-DILUTED 0 ML IV ONE
== END | disposition home or self-care (01) ==
LOC: Rad HDHVI 08:52
PROVIDERS: ATTEND Internal Medicine Cardiovascular Disease
DX: I10 Essential (primary) hypertension (principal); E78.5 Hyperlipidemia, unspecified; R06.02 Shortness of breath; R00.2 Palpitations; Z82.49 Family history of ischemic heart disease and other diseases of the circulatory system; Z79.899 Other long term (current) drug therapy
CPT/HCPCS: 78452; 93005; 96374; 96375; A9500; J0153

== ENCOUNTER → 2022-06-15 | Outpatient (CLI) | payer MEDICARE, BC ==
[2022-06-15 09:42] LABS: Basophils # (auto) 0.1 10 ^3/uL (0-0.2); Basophils % (auto) 0.9 % (0.0-2.0); Eosinophils # (auto) 0.1 10 ^3/uL (0-0.8); Eosinophils % (auto) 2.2 % (0.0-7.0); Hematocrit 40.6 % (36.0-46.0); Hemoglobin 14.1 g/dL (12.2-16.2); Lymphocytes # (auto) 1.7 10 ^3/uL (0.4-5.4); Lymphocytes % (auto) 27.2 % (10.0-50.0); Mean Corpuscular Hemoglobin 30.1 pg (28.0-32.0); Mean Corpuscular Hgb Conc. 34.8 g/dL (32.0-36.0); Mean Corpuscular Volume 86.5 fL (80.0-100.0); Monocytes # (auto) 0.5 10 ^3/uL (0-1.3); Monocytes % (auto) 7.7 % (0.0-12.0); Neutrophils # (auto) 3.8 10 ^3/uL (1.6-8.6); Nucleated Red Blood Cells % 0.1 %; Red Blood Cells 4.69 10^6/uL (4.0-5.20); White Blood Cell 6.2 10^3/uL (4.4-10.8)
[2022-06-15 09:52] LABS: Urine Blood Negative /uL (Negative); Urine Specific Gravity 1.015 (1.001-1.035)
[2022-06-15 11:11] LABS: Free T4 (Free Thyroxine) 1.06 ng/dL (0.89-1.76)
[2022-06-15 11:28] LABS: Albumin 3.9 g/dL (3.4-5.0); BUN/Creatinine Ratio 20.3; Calcium 9.1 mg/dL (8.5-10.1); Potassium 3.9 mmol/L (3.5-5.1); Total Protein 7.5 g/dL (6.4-8.2)
[2022-06-15 11:30] LABS: Bilirubin, Total 0.6 mg/dL (0.2-1.0)
== END | disposition home or self-care (01) ==
LOC: LAB 09:13
PROVIDERS: ATTEND Internal Medicine Cardiovascular Disease
DX: I10 Essential (primary) hypertension (principal); E11.9 Type 2 diabetes mellitus without complications; D51.3 Other dietary vitamin B12 deficiency anemia; E55.9 Vitamin D deficiency, unspecified; D64.9 Anemia, unspecified; R00.2 Palpitations; R53.1 Weakness; R30.0 Dysuria
CPT/HCPCS: 36415; 80053; 80061; 81003; 82306; 82607; 83036; 84439; 84443; 85025

== ENCOUNTER → 2022-07-31 | Outpatient (CLI) | payer MEDICARE, BC | END | disposition home or self-care (01) | LOC: Rad HDHVI 10:05 | PROVIDERS: ATTEND Internal Medicine Cardiovascular Disease | DX: I34.0 Nonrheumatic mitral (valve) insufficiency (principal); R06.02 Shortness of breath; I10 Essential (primary) hypertension | CPT/HCPCS: 93306 ==

== ENCOUNTER → 2022-08-12 | Outpatient (CLI) | payer MEDICARE, BC | END | disposition home or self-care (01) | LOC: Rad HDHVI 10:11 | PROVIDERS: ATTEND Internal Medicine Cardiovascular Disease | DX: I10 Essential (primary) hypertension (principal) | CPT/HCPCS: 93880 ==

== ENCOUNTER → 2023-02-15 | Outpatient (CLI) | payer MEDICARE, BC ==
[2023-02-15 10:41] LABS: Basophils # (auto) 0.1 10 ^3/uL (0-0.2); Basophils % (auto) 0.9 % (0.0-2.0); Eosinophils # (auto) 0.2 10 ^3/uL (0-0.8); Eosinophils % (auto) 2.6 % (0.0-7.0); Hematocrit 40.9 % (36.0-46.0); Hemoglobin 13.8 g/dL (12.2-16.2); Lymphocytes # (auto) 2.1 10 ^3/uL (0.4-5.4); Lymphocytes % (auto) 33.9 % (10.0-50.0); Mean Corpuscular Hemoglobin 29.3 pg (28.0-32.0); Mean Corpuscular Hgb Conc. 33.6 g/dL (32.0-36.0); Monocytes # (auto) 0.5 10 ^3/uL (0-1.3); Monocytes % (auto) 7.9 % (0.0-12.0); Neutrophils # (auto) 3.4 10 ^3/uL (1.6-8.6); Neutrophils % (auto) 54.7 % (37.0-80.0); Red Cell Distribution Width 13.6 % (11.8-14.3); White Blood Cell 6.3 10^3/uL (4.4-10.8)
[2023-02-15 10:44] LABS: Urine Blood Negative /uL (Negative); Urine Clarity CLOUDY (Clear); Urine Color Yellow (Yellow); Urine Protein, UAD Negative (Negative); Urine Specific Gravity 1.021 (1.001-1.035); Urine Urobilinogen Normal (Negative); Urine pH 5.5 (5.0-8.0)
[2023-02-15 11:26] LABS: Anion Gap 10 (5-15); Carbon Dioxide 24 mmol/L (20-30); Chloride 107 mmol/L (98-107); Potassium 3.7 mmol/L (3.5-5.1); Sodium 141 mmol/L (136-145)
[2023-02-15 11:27] LABS: Calcium 9.5 mg/dL (8.5-10.1)
[2023-02-15 11:32] LABS: Glucose 110 mg/dL (74-106); Triglycerides 140 mg/dL (< 150)
[2023-02-15 11:33] LABS: BUN/Creatinine Ratio 10.7 (10.0-20.0); Blood Urea Nitrogen 8 mg/dL (9-23); LDL Cholesterol 113 mg/dL (< 100)
[2023-02-15 11:34] LABS: Cholesterol 186 mg/dL (< 200)
[2023-02-15 11:35] LABS: HDL Cholesterol 59 mg/dL (40-59)
[2023-02-15 11:41] LABS: Free T4 (Free Thyroxine) 1.08 ng/dL (0.89-1.76)
== END | disposition home or self-care (01) ==
LOC: LAB 10:00
PROVIDERS: ATTEND Internal Medicine Cardiovascular Disease
DX: E11.9 Type 2 diabetes mellitus without complications (principal); D51.3 Other dietary vitamin B12 deficiency anemia; D64.9 Anemia, unspecified; E55.9 Vitamin D deficiency, unspecified; I10 Essential (primary) hypertension; R00.2 Palpitations; R53.1 Weakness; R30.0 Dysuria
CPT/HCPCS: 36415; 80048; 80061; 81003; 82607; 83036; 84439; 84443; 85025

== ENCOUNTER → 2023-09-27 | Outpatient (CLI) | payer MEDICARE, BC ==
[~2023-09-27] MED LIST changes: -ADENOSINE 61 MG in GIVE UN-DILUTED 0 ML IV ONE; -ADENOSINE 90 MG/30 ML INJ IV ONE; +IOHEXOL 350 MG/ML 100ML IJ ONE
[2023-09-27 10:55] VITALS: BP 150/68; PULSE 58; RESP 18; O2SAT 97
[2023-09-27 11:28] VITALS: BP 157/70; PULSE 66; RESP 16; O2SAT 98
== END | disposition home or self-care (01) ==
LOC: Rad HDHVI 10:43
PROVIDERS: ATTEND Internal Medicine Cardiovascular Disease
DX: G31.9 Degenerative disease of nervous system, unspecified (principal); J32.0 Chronic maxillary sinusitis; J32.3 Chronic sphenoidal sinusitis; R41.3 Other amnesia
CPT/HCPCS: 70470; G0463; Q9967

== ENCOUNTER → 2023-10-06 | Outpatient (CLI) | payer MEDICARE, BC | END | disposition home or self-care (01) | LOC: Rad HDHVI 08:59 | PROVIDERS: ATTEND Internal Medicine Cardiovascular Disease | DX: I65.22 Occlusion and stenosis of left carotid artery (principal); I10 Essential (primary) hypertension | CPT/HCPCS: 93880 ==

== ENCOUNTER 2023-12-10 08:49 | Inpatient (IN) | payer MEDICARE, BC ==
[~2023-12-10] VITALS: Ht 30.5 cm; Wt 62.7 kg
[2023-12-10] MEDS ORDERED: NITROGLYCERIN 0.4 MG SL TAB SL PRN (12:00)
[2023-12-10] MEDS ORDERED: MORPHINE SULFATE INJ 2 MG/ml SYRG IV PRN (12:00)
[2023-12-10] MEDS ORDERED: HAL1T PO (12:38)
[2023-12-10 12:45] VITALS: BP 138/62; PULSE 70; RESP 18; TEMP 98.3; O2SAT 100
[2023-12-10 14:18] LABS: Basophils # (auto) 0 10 ^3/uL (0-0.2); Basophils % (auto) 0.6 % (0.0-2.0); Eosinophils # (auto) 0.1 10 ^3/uL (0-0.8); Eosinophils % (auto) 1.1 % (0.0-7.0); Hematocrit 38.4 % (36.0-46.0); Hemoglobin 13.3 g/dL (12.2-16.2); Lymphocytes # (auto) 1.8 10 ^3/uL (0.4-5.4); Lymphocytes % (auto) 28.9 % (10.0-50.0); Mean Corpuscular Hemoglobin 30.4 pg (28.0-32.0); Mean Corpuscular Hgb Conc. 34.5 g/dL (32.0-36.0); Monocytes # (auto) 0.5 10 ^3/uL (0-1.3); Monocytes % (auto) 8.5 % (0.0-12.0); Neutrophils # (auto) 3.7 10 ^3/uL (1.6-8.6); Neutrophils % (auto) 60.9 % (37.0-80.0); Nucleated Red Blood Cells % 0.1 %; Platelet Count (auto) 291 10^3/uL (140-450); Red Blood Cells 4.36 10^6/uL (4.0-5.20); Red Cell Distribution Width 14.1 % (11.8-14.3); White Blood Cell 6.1 10^3/uL (4.4-10.8)
[2023-12-10 14:41] LABS: Albumin 4.3 g/dL (3.2-4.8); Alkaline Phosphatase 82 U/L (46-116); Anion Gap 5 (5-15); Aspartate Aminotransferase 14 U/L (13-40); BUN/Creatinine Ratio 21.4 (10.0-20.0); Blood Urea Nitrogen 15 mg/dL (9-23); Calcium 9.8 mg/dL (8.7-10.4); Carbon Dioxide 27 mmol/L (20-30); Chloride 108 mmol/L (98-107); Glucose 104 mg/dL (74-106); Potassium 4.3 mmol/L (3.5-5.1); Sodium 140 mmol/L (136-145)
[2023-12-10 14:42] LABS: Alanine Aminotransferase < 9 U/L (7-40); Bilirubin, Total 0.7 mg/dL (0.2-1.0); Total Protein 6.9 g/dL (5.7-8.2)
[2023-12-10 16:47] VITALS: BP 127/64; PULSE 66; RESP 18; TEMP 98.6; O2SAT 98
[2023-12-10] MEDS: D5W/SOD CHL 0.45% 1,000 ML IV SCH (17:44)
[2023-12-10 20:00] VITALS: PULSE 84
[2023-12-10 21:00] VITALS: BP 136/60; PULSE 70; RESP 20; TEMP 98; O2SAT 97
[2023-12-11 01:00] VITALS: BP 138/63; PULSE 63; RESP 18; TEMP 97.9; O2SAT 96
[2023-12-11] MEDS: HALOPERIDOL LACTATE 5 MG/ML INJ VIAL IM PRN (01:13)
[2023-12-11 05:00] VITALS: BP 129/53; PULSE 60; RESP 17; TEMP 97.4; O2SAT 96
[2023-12-11 09:00] VITALS: BP 117/49; PULSE 78; RESP 18; TEMP 98.4; O2SAT 98
[2023-12-11 13:00] VITALS: BP 125/59; PULSE 67; RESP 14; TEMP 97.9; O2SAT 100
[2023-12-11 17:00] VITALS: BP 148/72; PULSE 67; RESP 16; TEMP 97.8; O2SAT 98
[2023-12-11 21:00] VITALS: BP 139/67; PULSE 70; RESP 18; TEMP 97.6; O2SAT 96
[2023-12-12] VITALS (7 sets, daily range): BP systolic 104–140; BP diastolic 40–64; PULSE 60–81; RESP 16–20; TEMP 97.4–98.3; O2SAT 94–98
[2023-12-13 05:00] VITALS: BP 144/88; PULSE 79; RESP 18; TEMP 98.1; O2SAT 95
[2023-12-13 13:00] VITALS: BP 137/78; PULSE 81; RESP 17; TEMP 97.8; O2SAT 98
[2023-12-13 17:00] VITALS: BP 126/56; PULSE 60; RESP 17; TEMP 97.2; O2SAT 95
[2023-12-13 22:00] VITALS: BP 130/67; PULSE 74; RESP 18; TEMP 97.7; O2SAT 95
[2023-12-14 01:00] VITALS: BP 133/68; PULSE 69; RESP 18; TEMP 97.8; O2SAT 97
[2023-12-14 05:00] VITALS: BP 129/71; PULSE 93; RESP 18; TEMP 98; O2SAT 97
[2023-12-14 09:00] VITALS: BP 112/53; PULSE 64; RESP 17; TEMP 98; O2SAT 97
[2023-12-14 13:00] VITALS: BP 131/59; PULSE 63; RESP 18; TEMP 98.3; O2SAT 95
[2023-12-14 17:00] VITALS: BP 123/73; PULSE 81; RESP 18; TEMP 98; O2SAT 96
[2023-12-14 21:00] VITALS: BP 151/79; PULSE 86; RESP 18; TEMP 98.7; O2SAT 97
[2023-12-15 01:00] VITALS: BP 143/71; PULSE 7; PULSE 74; RESP 18; TEMP 98.6; O2SAT 97
[2023-12-15 05:00] VITALS: BP 158/76; PULSE 71; RESP 18; TEMP 98.4; O2SAT 98
[2023-12-15 09:00] VITALS: BP 138/71; PULSE 77; RESP 18; TEMP 97.8; O2SAT 98
[2023-12-15 13:00] VITALS: BP 144/61; PULSE 91; RESP 18; TEMP 98; O2SAT 99
[2023-12-15 17:00] VITALS: BP 140/53; PULSE 70; RESP 18; TEMP 97.9; O2SAT 96
[2023-12-15 21:00] VITALS: BP 125/61; PULSE 63; RESP 15; TEMP 97.5; O2SAT 97
[2023-12-16] VITALS (7 sets, daily range): BP systolic 110–145; BP diastolic 53–77; PULSE 61–77; RESP 15–18; TEMP 97.6–97.9; O2SAT 96–99
[2023-12-17 05:00] VITALS: BP_SYST 116; BP_SYST 138; BP_DIAS 58; BP_DIAS 66; PULSE 51; PULSE 81; RESP 18; TEMP 97.7; TEMP 97.9; O2SAT 100; O2SAT 97
[2023-12-17 08:00] VITALS: PULSE 62; RESP 16
[2023-12-17 09:00] VITALS: BP 131/61; PULSE 62; RESP 16; TEMP 98.5; O2SAT 98
[2023-12-17 09:28] VITALS: BP 131/61; PULSE 62; RESP 16; TEMP 98.5; O2SAT 98
== END 2023-12-17 09:50 | disposition home health service (06) | DRG 641 ==
LOC: OVERFLOW 11:19 → CENTRAL 11:32 → EAST 12-15 19:40
PROVIDERS: ADMIT Internal Medicine Cardiovascular Disease; ATTEND Internal Medicine Cardiovascular Disease
DX: R62.7 Adult failure to thrive (principal); F03.90 Unspecified dementia, unspecified severity, without behavioral disturbance, psychotic disturbance, mood disturbance, and anxiety; Z79.899 Other long term (current) drug therapy; F09 Unspecified mental disorder due to known physiological condition
CPT/HCPCS: 36415; 71045; 80053; 85025; 93005; 97110; 97116; 97163; 97530; G0378